=== PATIENT | female | born 1965 | race Caucasian/White ===

== ENCOUNTER → 2017-03-09 | Day surgery (SDC) | payer OTHER ==
[~2017-03-09] MED LIST: ACETAMINOPHEN 1000 MG/100 ML VIAL IV ONE; APREPITANT 40 MG CAP ONE; BUPIVACAINE/EPINEPHRINE 0.25% 50 ML VIAL ONE; CEFT500T PO; LACTATED RINGER'S 1000 ML INJ 1,000 ML ONE; MEPERIDINE HCL 50 MG/ML VIAL ONE; MIDAZOLAM HCL 2 MG/2 ML VIAL ONE; ONDANSETRON HCL 4 MG/2 ML VIAL IV PUSH ONE; PROPOFOL 200 MG/20 ML AMP IV ONE; Z.0.BCPILL PO; ZITH500T PO; ceFAZolin INJ 1,000 MG VIAL ONE; metroNIDAZOLE 500 MG INJ 100 ML IV ONE
--- NOTE | 2017-03-09 15:27 | TN ---
cc: ARACELIS HIGGINS D.O., JOSEPH D. M.D. DATE OF SURGERY: 03/09/2017 PREOPERATIVE DIAGNOSIS Biliary colic, gallstones. POSTOPERATIVE DIAGNOSIS Biliary colic, gallstones. two hemangiomas of the liver. PROCEDURE 1. Laparoscopic cholecystectomy. 2. Ablation of two hemangiomas of the liver. ANESTHESIA General. SURGEON Dr. Kidd IT TRAINING SPECIALIST RACHEL Sanabria The LEAD PYTHON DEVELOPER was present from beginning to the end of the case assisting in all portions of the procedure. It was necessary to have this individual in the room to assist in the above surgical procedure. The surgical procedure was assisted by the LEAD PYTHON DEVELOPER. The LEAD PYTHON DEVELOPER presence was necessary throughout the case for appropriate retraction, dissection, visualization, and resection of the important anatomical structures during the surgical procedure. The LEAD PYTHON DEVELOPER was assisting throughout the entirety of the operation. The skill set of the LEAD PYTHON DEVELOPER is medically and surgically necessary to safely complete the surgical procedure. During the surgical case the operating room surgical elastic knitter hand frame was working instrument table and passing instruments to the attending surgeon and LEAD PYTHON DEVELOPER The LEAD PYTHON DEVELOPER was directly assisting the operating surgeon and involved in the technical aspects of the surgical case. INDICATION This is a pleasant 51-year-old female who had signs and symptoms of biliary colic. Plans were made for above. DETAILS OF PROCEDURE The patient was taken to the operating room and placed in the supine position. After anesthesia a timeout is done. She is given preoperative antibiotics. We make an incision just below the umbilicus, dissect down to the fascia from her previous surgery and the abdomen is entered. There are no adhesions. A 10 mm trocar is introduced and three other working ports, 5 mm below the xyphoid, 5 mm between the two previously placed ports and a working port in the right upper quadrant. The gallbladder is grasped. The liver is somewhat floppy. We are able to dissect the angle of Calot, however, because of the fatty tissue and what appears to be chronic inflammation I do a dome-down technique and dissect down to the gallbladder off the gallbladder fossa completely identifying the cystic duct and cystic artery. Both of these are doubly ligated and transected and the gallbladder is pulled out through the umbilical incision. There are two hemangiomas, one on the right lobe on the undersurface which measures less than a centimeter, this is cauterized. The more superficial one on the surface of the liver is cauterized as well. We then check our dissection site. There is excellent hemostasis without biliary leakage. No other gross abnormality is seen in abdomen, no hernia. We then remove all the trocars. The fascial layer at the umbilicus is closed with 0 Vicryl and skin at all four sites closed with 4-0 Vicryl. Steri-Strips are applied. Sterile bandage applied. The patient tolerated the procedure well. Javy Kidd MD JDB/BT /2:52 PM /3:12 PM MTDD
== END | disposition home or self-care (01) ==
LOC: ESDC 12:06
PROVIDERS: ATTEND Surgery
DX: K81.1 Chronic cholecystitis (principal); D18.03 Hemangioma of intra-abdominal structures
CPT/HCPCS: 00790; 47562; 88304; J0131; J0690; J2175; J2250; J2405; J3010; J7120; J8501